=== PATIENT | female | born 1960 | race Caucasian/White ===

== ENCOUNTER 2018-05-12 14:51 | Outpatient (CLI) | payer BC ==
--- NOTE | 2018-05-12 17:19 | MMO ---
BILATERAL SCREENING MAMMOGRAM: Date: 05/12/18 HISTORY: 58-year-old female. Routine screening mammography. COMPARISON: None. Baseline mammogram. TECHNIQUE: CC and MLO views of both breasts are submitted for interpretation. This patient's mammogram was reviewed with the assistance of computer-aided detection. FINDINGS: The breasts are composed of heterogeneously dense fibroglandular tissue, which limits the sensitivity of mammography in the detection of underlying malignancy. Bilaterally, no suspicious dominant mass, architectural distortion, or suspicious calcification. Benign-appearing calcifications in both breast s. IMPRESSION: BIRADS 2: Benign Finding(s) RECOMMENDATION: Annual mammogram. POS: [facility]
== END 2018-05-12 14:52 | disposition home or self-care (01) ==
LOC: SCSMAMMO 14:51
PROVIDERS: ATTEND Family Medicine
DX: Z12.31 Encounter for screening mammogram for malignant neoplasm of breast (principal)
CPT/HCPCS: 77067

== ENCOUNTER 2019-02-16 07:07 | Outpatient (CLI) | payer BC ==
--- NOTE | 2019-02-16 08:19 | ULT ---
Gallbladder ultrasound: Multiple grayscale images of right upper quadrant obtained according to protocol. INDICATION: Pain FINDINGS: Liver: Nodular morphology of the liver with heterogeneous echotexture. Portions of the liver are not reliably visualized, limiting assessment Gallbladder: Normal Gallbladder wall: Normal. Womack's Sign: Negative Common bile duct is normal. Ascites: None IMPRESSION: Limited evaluation of the liver due to persistent areas of shadowing. There is a nodular contour sugg estive of cirrhotic morphology. Recommend follow-up with contrast-enhanced CT exam for more definitive evaluation. No acute gallbladder pathology
== END 2019-02-16 07:08 | disposition home or self-care (01) ==
LOC: SCSULT 07:07
PROVIDERS: ATTEND Physician Assistant Medical
DX: K58.1 Irritable bowel syndrome with constipation (principal); K21.9 Gastro-esophageal reflux disease without esophagitis; R10.13 Epigastric pain; K76.89 Other specified diseases of liver
CPT/HCPCS: 76705

== ENCOUNTER 2019-02-27 08:20 | Outpatient (CLI) | payer BC ==
[2019-02-27] MEDS ORDERED: Iopamidol 370 76% 100 ML VIAL ONE (09:00)
--- NOTE | 2019-02-27 10:29 | CT ---
CT ABDOMEN AND PELVIS WITH ORAL AND IV CONTRAST: Date: 02/27/19 HISTORY: Abnormal ultrasound, loss of appetite. Nausea, epigastric pain, IBS, GERD. FINDINGS: Lung bases are clear. There is irregularity of the surface of the liver consistent with cirrhosis. Th ere is a 9 mm low density lesion in the right lobe of the liver which does meet criteria for a simple cyst. No calcified gallstones are seen. The spleen is normal. The pancreas, adrenal glands, and righ t kidney are unremarkable. There is scarring in the left renal cortex. No free air or lymphadenopathy seen in the abdomen or pelvis. There are vascular calcifications witho ut evidence of aneurysmal dilatation of the abdominal aorta. There are mild degenerative changes in t he spine. The small bowel loops are not abnormally dilated. There is fecal material in the colon. Uterus is pre sent. A tiny amount of free fluid is seen in the pelvis. IMPRESSION: 1. Cirrhosis of liver. 2. Subcentimeter indeterminate liver lesion. Correlation with serum AFP and follow-up CT scan in 3 m onths (triple phase) is recommended. 3. Tiny amount of free fluid in the pelvis. POS: [facility]
== END 2019-02-27 08:21 | disposition home or self-care (01) ==
LOC: SCSCT 08:20
PROVIDERS: ATTEND Physician Assistant Medical
DX: R93.89 Abnormal findings on diagnostic imaging of other specified body structures (principal); K74.60 Unspecified cirrhosis of liver; K76.9 Liver disease, unspecified
CPT/HCPCS: 74177; Q9967

== ENCOUNTER 2019-03-27 07:39 | Day surgery (SDC) | payer BC ==
[2019-03-24 11:04] VITALS: BMI 23.7
[2019-03-27 08:10] LABS: INR-International Normal Ratio 0.9; PTT 25.8 SEC (22.9-36.1); Prothrombin Time 12.5 SEC (12.0-14.7)
[2019-03-27 08:30] LABS: #Basophils 0.1 thou/uL (0.0-0.2); #Eosinphils 0.1 thou/uL (0.0-0.7); #Lymphocytes 1.5 thou/uL (1.20-3.40); #Monocytes 0.4 thou/uL (0.11-0.59); #Neutrophils 2.7 thou/uL (1.40-6.50); %Basophils 1.7 % (0.0-1.0); %Eosinophils 1.3 % (0.0-10.0); %Lymphocytes 31.4 % (21.0-51.0); %Neutrophils 56.6 % (42.0-75.0); Hemoglobin 14.7 g/dL (12.0-16.0); Mean Corpuscular HGB CONC 34.7 g/dL (32.0-36.0); Mean Corpuscular Hemoglobin 32.1 pg (27.0-31.0); Mean Corpuscular Volume 92.3 fL (78.0-98.0); Mean Platelet Volume 6.9 fL (7.4-10.4); Platelet Count 203 thou/uL (130-400); RBC Distribution Width 11.7 % (11.5-14.5); White Blood Cell (WBC) Count 4.7 thou/uL (4.8-10.8)
[2019-03-27] MEDS ORDERED: Midazolam HCl 2 mg/2 ml Vial ONE (09:25)
[2019-03-27] MEDS ORDERED: Sodium Bicarbonate 2.5 MEQ/5 ML VIAL ONE (09:25)
[2019-03-27] MEDS ORDERED: Fentanyl 100 MCG/2 ML VIAL ONE (09:25)
--- NOTE | 2019-03-27 13:52 | ULT ---
US Hepatic Bx ULTRASOUND GUIDED HEPATIC BIOPSY: CLINICAL HISTORY: Cirrhosis. PROCEDURE: Informed consent was obtained and the patient was escorted to the procedural suite, placed in supine position. Conscious sedation was performed, administered by the radiology nurse, with the patient consistently monitored throughout the duration of the exam in stable condition, for a duration of 45 minutes. The patient's skin was prepped and draped in a standard sterile fashion and topical anesthesia with buffered 1% lidocaine was performed. After a small skin incision was made, an 18-gaug e needle was advanced to the leading edge of the left hepatic lobe. After adequate placement was confirmed with ultrasound imaging, 2 subsequent core specimens were obtained via percutaneous biopsy. These were confirmed with ultrasound imaging and the specimens were submitted to the pathologist for adequacy. Specimens were deemed adequate for interpretation. Therefore, all devices were then rem adriano from the patient. No unexpected procedural complications were present. The patient was monitored in radiology holding i n stable condition prior to discharge with family member. IMPRESSION: Technically successful ultrasound-guided percutaneous hepatic biopsy. Pathology results are pending.
== END 2019-03-27 11:20 | disposition home or self-care (01) ==
LOC: ULT 07:39
PROVIDERS: ATTEND Physician Assistant Medical
PROC: 0FB23ZX Excision of Left Lobe Liver, Percutaneous Approach, Diagnostic (ICD-10-PCS; principal; 2019-03-27)
DX: K74.60 Unspecified cirrhosis of liver (principal); I10 Essential (primary) hypertension; K58.9 Irritable bowel syndrome, unspecified; M19.90 Unspecified osteoarthritis, unspecified site; Z79.899 Other long term (current) drug therapy; Z88.2 Allergy status to sulfonamides; Z91.040 Latex allergy status
CPT/HCPCS: 36415; 47000; 76942; 85025; 85610; 85730; 88307; 88313; J2250; J3010

== ENCOUNTER 2019-05-08 12:19 | Outpatient (CLI) | payer BC ==
--- NOTE | 2019-05-08 15:45 | NM ---
EXAM: NM Hida Scan W Drug PROVIDED CLINICAL HISTORY: Epigastric pain COMPARISON: None FINDINGS: 5.3 mCi technetium 99m labeled mebrofenin was given intravenously. There is appropriate hepatic extra ction of radiotracer with excretion into the biliary system, including gallbladder by the 60 minute gabe. Subsequent to the administration of 8 ounces of Ensure orally, there is excretion of radiotrace r from the gallbladder into bowel with a calculated ejection fraction of 94%. IMPRESSION: 1. No evidence for cystic or complete common duct obstruction. 2. Nonspecific delayed biliary to bowel transit. 3. Normal gallbladder ejection fraction.
== END 2019-05-08 12:20 | disposition home or self-care (01) ==
LOC: NM 12:19
PROVIDERS: ATTEND Family Medicine
DX: R10.13 Epigastric pain (principal)
CPT/HCPCS: 78227; A9537